=== PATIENT | female | born 2000 ===

== ENCOUNTER 2024-03-23 19:21 | Emergency (ER) | payer OTHER ==
[~2024-03-23] VITALS: Ht 160 cm; Wt 164.4 kg
[2024-03-23 19:46] VITALS: BP 157/111; PULSE 108; RESP 18; TEMP 98.6; O2SAT 98
== END 2024-03-23 21:45 | disposition left against medical advice (07) ==
LOC: ER 19:23
DX: I10 Essential (primary) hypertension (principal); Z53.21 Procedure and treatment not carried out due to patient leaving prior to being seen by health care provider